=== PATIENT | male | born 1970 | race Two or more races ===

== ENCOUNTER 2018-06-01 10:00 | Emergency (ER) | payer SELFPAY ==
--- NOTE | 2018-06-01 10:11 | NUR ---
CALLED TO TRIAGE,WENT TO [place] PER ADMITTING
--- NOTE | 2018-06-01 10:17 | NUR ---
CALLED TO TRIAGE, NO ANSWER
--- NOTE | 2018-06-01 10:39 | NUR ---
CALLED FOR TRIAGE NOT IN THE WAITING ROOM.
== END 2018-06-01 10:48 | disposition left against medical advice (07) ==
LOC: ER 10:00
DX: Z53.21 Procedure and treatment not carried out due to patient leaving prior to being seen by health care provider (principal)